=== PATIENT | male | born 1965 | race Caucasian/White ===

== ENCOUNTER 2021-12-21 18:50 | Emergency (ER) | payer BC, OTHER ==
[2021-12-21 18:59] VITALS: BP 155/88; PULSE 83
[2021-12-21 20:17] LABS: CORONAVIRUS COVID-19 NAA NEGATIVE (NEGATIVE)
[2021-12-21] MEDS ORDERED: predniSONE 20 MG Tab PO ONE (20:19)
[2021-12-21] MEDS ORDERED: Albuterol 6.7 GM Inhaler INH STA (20:19)
== END 2021-12-21 20:48 | disposition home or self-care (01) ==
LOC: JD.ED 18:50
DX: J06.9 Acute upper respiratory infection, unspecified (principal); Z91.048 Other nonmedicinal substance allergy status; Z79.899 Other long term (current) drug therapy; Z72.0 Tobacco use; Z20.822 Contact with and (suspected) exposure to COVID-19
CPT/HCPCS: 0240U; 71045; 94640; 99283; A9270; J7512; 99284